=== PATIENT | female | born 1995 | race American Indian/Alaskan Native ===

== ENCOUNTER 2021-01-18 20:48 | Inpatient (IN) | payer OTHER, MEDICAID, SELFPAY ==
[2021-01-18 20:53] VITALS: BP 121/91; PULSE 91; RESP 22; TEMP 36.7; O2SAT 98; BMI 18.3
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
[2021-01-18 21:45] LABS: COVID-19 Test Negative (Negative)
[2021-01-18] MEDS: Diphth,Pertus(ACell),Tet Adult 0.5 ML SYRINGE IM (21:56)
--- NOTE | 2021-01-18 22:06 | PC.NURSE ---
Patient calm and quiet, compliant with admission process, Slovenian speaking, compliant lab draw and Covid swab, provider saw the patient/ordered TDAP 0.5 ml administered as ordered on left deltoid, denied distress, will continue to monitor.
[2021-01-18 22:19] LABS: MANUAL DIFF FLAG NO
[2021-01-18 22:20] LABS: Basophils Percent Auto 0.3 % (0-2); Eosinophils Absolute Auto 0.1 X10*3/uL (0.0-0.4); Eosinophils Percent Auto 1.1 % (0-4); Hematocrit 34.2 % (37-47); Hemoglobin 11.1 g/dl (12.0-16.0); Imm Gran Abs Auto 0.01 X10*3/uL (0.00-0.03); Imm Gran Pct Auto 0.1 % (0.0-0.4); Lymphocytes Absolute Auto 2.2 X10*3/uL (1.2-4.9); Lymphocytes Percent Auto 24.9 % (20-40); Mean Corpuscular HGB Conc 32.5 g/dl (31.0-35.0); Mean Corpuscular Hemoglobin 30.7 pg (27.0-33.0); Mean Corpuscular Volume 94.5 fL (80-98); Mean Platelet Volume 9.5 fL (9.4-12.3); Monocytes Absolute Auto 0.6 X10*3/uL (0.1-1.2); Monocytes Percent Auto 6.3 % (2-11); Neutrophils Absolute Auto 5.9 X10*3/uL (2.0-8.3); Neutrophils Percent Auto 67.3 % (45-73); Platelet Count 349 X10*3/uL (160-400); Red Blood Count 3.62 X10*6/uL (4.20-5.50); Red Cell Distribution Width 12.8 % (11.0-16.0); White Blood Count 8.8 X10*3/uL (4.8-10.8)
[2021-01-18 22:48] LABS: Ethanol < 10 mg/dL
[2021-01-18 22:59] LABS: Anion Gap 13 (12-20); Blood Urea Nitrogen 20 mg/dL (9-16); Calcium 9.7 mg/dL (8.4-10.2); Carbon Dioxide 26 mmol/L (22-29); Chloride 109 mmol/L (96-108); Creatinine Clr Calc Pharmacy 76.5; Estimated Glomerular Filt Rate > 60; Glucose Random 51 mg/dL (60-115); Potassium 3.5 mmol/L (3.3-5.1); Sodium 144 mmol/L (135-145)
[2021-01-18 23:23] LABS: Glucose, Whole Blood 101 mg/dL (60-115)
[2021-01-19 00:07] VITALS: BP 97/58; PULSE 78; RESP 18; TEMP 36.5; O2SAT 100
--- NOTE | 2021-01-19 01:21 | PC.NURSE ---
Patient in bed resting quietly, complaint with BHN assessment process, disposition discharge in the morning, will continue to monitor.
--- NOTE | 2021-01-19 01:41 | PC.NURSE ---
CHERYLE after talking to provider decided to change patient's disposition patient is now on section 12 inpatient bed search, patient and provider aware.
[2021-01-19 04:37] LABS: Glucose Urine UA NEG (NEG); Leukocyte Esterase Urine NEG (NEG); Nitrite Urine NEG (NEG); Specific Gravity - Urine >= 1.030 (1.005-1.025); Urine Blood NEG (NEG); Urine Ketones NEG (NEG); Urine Protein NEG (NEG-TRACE)
[2021-01-19 04:43] LABS: UPreg QC Valid YES; Urine Pregnancy NEGATIVE (NEGATIVE)
[2021-01-19 04:43] LABS: Appearance Urine CLEAR; Color Urine YELLOW
[2021-01-19 05:14] LABS: Amphetamine Screen Urine Not Detected (Not Detect); Barbiturates, Urine Not Detected (Not Detect); Benzodiazepines Screen Urine Not Detected (Not Detect); Cannabinoid Screen Urine Not Detected (Not Detect); Cocaine Screen Urine POSITIVE (Not Detect); Opiate Screen Urine Not Detected (Not Detect); Phencyclidine Screen Urine Not Detected (Not Detect)
--- NOTE | 2021-01-19 07:12 | PC.NURSE ---
patient remains at rest with even unlabored breaths received report from previous nurse, appears in no distress
--- NOTE | 2021-01-19 08:44 | ECG_ITS ---
Test Reason : MEDICALCLEARENCE Blood Pressure : / mmHG Vent. Rate : 066 BPM Atrial Rate : 066 BPM P-R Int : 122 ms QRS Dur : 074 ms QT Int : 406 ms P-R-T Axes : 053 031 012 degrees QTc Int : 425 ms Normal sinus rhythm Normal ECG When compared with ECG of 27-FEB-2017 01:13, No significant change was found Referred By: Gay Henao Electronically Signed By:CINTHIA GUERRERO MD
[2021-01-19 09:46] VITALS: BP 105/61; PULSE 71; RESP 16; TEMP 36.7; O2SAT 99
[2021-01-19 13:30] LABS: CT PCR NOT DETECTED (Not Detect.); NG PCR NOT DETECTED (Not Detect.)
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
[2021-01-20 09:05] LABS: Estimated Average Glucose 85 mg/dL; Hemoglobin A1c % 4.6 %
[2021-01-20 09:10] LABS: Cholesterol 117 mg/dL; HDL Cholesterol 50 mg/dL; LDL Cholesterol Calculated 63 mg/dl; Triglycerides 24 mg/dL
[2021-01-20 09:25] LABS: Thyroid Stimulating Hormone 0.82 uIU/mL (0.32-4.0)
[2021-01-20 09:31] LABS: Folate 7.4 ng/mL (> or = 4.0); Vitamin B12 308 pg/mL (200-900)
[2021-01-20] MEDS: Divalproex Sodium 500 MG TABLET.DR PO ×2 (12:28→21:08)
[2021-01-20] MEDS: OLANZapine 5 MG TABLET PO ×2 (12:29→21:08)
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
[2021-01-20 18:50] VITALS: BP 96/54; PULSE 87; TEMP 36.6
[2021-01-21] MEDS: OLANZapine 5 MG TABLET PO ×2 (08:47→20:14)
[2021-01-21] MEDS: Divalproex Sodium 500 MG TABLET.DR PO ×2 (08:47→20:14)
--- NOTE | 2021-01-21 11:32 | HO.PSYCHPN ---
Subjective Subjective Date of Service: 01/24/21 Reason For Visit: SI Interim History: Radha is covered with blanket. She reports she is doing well, but does not engage much in any kind of meaningful conversation. She denies SI/HI. She denies AH/VH. She reports feeling very tired and needing to rest as she has been on the streets prior to coming to the unit. She has not attended assigned groups. She is minimally interacting with peers. She is taking medications as prescribed- although it appeared that she cheeked one of her medications- depakote. Today she reports she wants to continue taking them. Review of Systems Review of Systems Constitutional : No Fever, No Chills ENT/Mouth : No Ear Pain, No Nasal Congestion, No sore throat Eyes: No Eye Pain, No Swelling, No Redness Cardiovascular : No Chest Pain, No SOB Respiratory : No Cough, No Sputum, No Dyspnea Gastrointestinal : No Nausea, No Vomiting, No Diarrhea, No Hematochezia, No Melena Genitourinary : No Dysuria, No Urinary Frequency, No Hematuria Musculoskeletal : No Myalgias Skin : No Skin Lesions, No rash, pos skin laceration Neuro : No Weakness, No Numbness, No Paresthesias, No Dizziness, No Headache Psych : positive Anxiety, positive Depression, no SI/HI Heme/Lymph: No Lymphadenopathy Endocrine : No Polyuria, No Polydipsia All other systems reviewed and are negative Cardiovascular: Denies chest pain, Denies chest pain at rest, Denies rapid heart rate, Denies lightheadedness and Denies dyspnea Respiratory: Denies dyspnea Gastrointestinal: Denies constipation and Denies diarrhea Mental Status Exam Mental Status Exam Narrative: Appearance: malnourish, dressed in casual clothing, hygiene improved, in NAD Behavior: calm, organized Psychomotor: normal Speech: crumbling at times, pressured rate/rhythm/volume, spontaneous TP: tangential TC: wanting to be discharged Mood: fine Affect euthymic, smiles slight at times SI:denies HI:denies AH/VH:denies Delusions:none Insight/judgment:poor x 2. Memory/cog: alert, oriented x 3. Diagnostics Vital Signs (24Hr): Vital Signs - 24 hr 01/23/21 18:00 Temperature 98.3 F Pulse Rate 88 Blood Pressure 111/56 L Body Mass Index 21.3 Labs Results: 01/18/21 22:15 05/18/21 22:15 Medications Medications Current Medications Generic Name Dose Route Start Last Admin Trade Name Freq PRN Reason Stop Dose Admin Acetaminophen 650 mg 01/19/21 12:23 Acetaminophen 325 Mg Tablet PO Q6H PRN Headache/Pain Mild Scale (1-3) Al Hydroxide/Mg Hydroxide 30 ml 01/19/21 12:23 Magnesium Hydrox/Alum Hydrox 30 Ml Oral.Susp PO Q6H PRN Heartburn/Nausea Divalproex Sodium 500 mg 01/20/21 12:00 01/24/21 09:51 Divalproex Sodium 500 Mg Tablet.Dr PO 500 mg BID ROBB Administration Hydroxyzine HCl 50 mg 01/20/21 11:59 Hydroxyzine Hcl 25 Mg Tablet PO Q6H PRN Anxiety Magnesium Hydroxide 30 ml 01/19/21 12:23 Milk Of Magnesia 30 Ml Oral.Susp PO DAILY PRN Constipation Olanzapine 5 mg 01/20/21 12:00 01/24/21 09:51 Olanzapine 5 Mg Tablet PO 5 mg BID ROBB Administration Trazodone HCl 50 mg 01/19/21 12:23 Trazodone Hcl 50 Mg Tablet PO BEDTIME PRN Insomnia Allergies Allergies Allergy/AdvReac Type Severity Reaction Status Date / Time No Known Allergies Allergy Unverified 05/20/20 18:58 [No Known Allergies*] Assessment & Plan Assessment & Plan (1) Bipolar 1 disorder, manic, moderate: Status: Acute Code(s): F31.12 - Bipolar disorder, current episode manic without psychotic features, moderate (2) Cocaine use disorder, severe, dependence: Status: Acute Code(s): F14.20 - Cocaine dependence, uncomplicated Assessment and Plan: Education done with patient regarding need for consistent control method while on Depakote to prevent risk of tubal defects if she were to get ; emphasized importance of her not getting while on Depakote- pt acknowleged understanding Continue Depakote 500mg po BID Continue olanzapine 5mg po BID Continue to encourage referral to substance use treatment programs. pt currently declines. Greater than 50% of the session was spent on counseling and/or coordination of care Reason for contiued inpatient stay Substantial Risk for: harm to self
[2021-01-21 11:55] VITALS: BMI 21.3
[2021-01-21 11:58] VITALS: BMI 21.3
[2021-01-21 16:50] VITALS: BP 100/58; PULSE 85; TEMP 37.1
[2021-01-22 06:00] VITALS: BP 95/52; PULSE 93; RESP 18; TEMP 36.8; O2SAT 99
--- NOTE | 2021-01-22 07:53 | HO.PSYCHPN ---
Subjective Subjective Date of Service: 01/22/21 Reason For Visit: SI Subjective Notes: [facility] Proxy: No Guardianship: No Medical Problems Affecting Mental Status: No Interim History: pt mood elevated; laughing slightly at times; She is cooperative. Denies SI or HI. She denies auditory or visual hallucinations Medication Compliance: Yes Side effects from medications: No Attending Groups: No Review of Systems Review of Systems Constitutional : No Fever, No Chills ENT/Mouth : No Ear Pain, No Nasal Congestion, No sore throat Eyes: No Eye Pain, No Swelling, No Redness Cardiovascular : No Chest Pain, No SOB Respiratory : No Cough, No Sputum, No Dyspnea Gastrointestinal : No Nausea, No Vomiting, No Diarrhea, No Hematochezia, No Melena Genitourinary : No Dysuria, No Urinary Frequency, No Hematuria Musculoskeletal : No Myalgias Skin : No Skin Lesions, No rash, pos skin laceration Neuro : No Weakness, No Numbness, No Paresthesias, No Dizziness, No Headache Psych : positive Anxiety, positive Depression, no SI/HI Heme/Lymph: No Lymphadenopathy Endocrine : No Polyuria, No Polydipsia All other systems reviewed and are negative Cardiovascular: Denies chest pain, Denies chest pain at rest, Denies rapid heart rate, Denies lightheadedness and Denies dyspnea Respiratory: Denies dyspnea Gastrointestinal: Denies constipation and Denies diarrhea Mental Status Exam Mental Status Exam Narrative: Appearance: malnourish, wearing hospital gown, poor hygiene, in NAD Behavior: irritable Psychomotor: some agitation noted Speech: crumbling at times, pressured rate/rhythm/volume, spontaneous TP: tangential TC: wanting to be discharged Mood: fine Affect:dysphoric SI:denies HI:denies AH/VH:denies Delusions:none Insight/judgment:poor x 2. Memory/cog: alert, oriented x 3. Diagnostics Vital Signs (24Hr): Vital Signs - 24 hr 01/21/21 16:50 01/22/21 06:00 Temperature 98.8 F 98.3 F Pulse Rate 85 93 Respiratory Rate 18 Blood Pressure 100/58 L 95/52 L Pulse Oximetry 99 Body Mass Index 21.3 Labs Results: 01/18/21 22:15 01/18/21 22:15 Labs: Laboratory Results - last 48 hr 01/20/21 01/20/21 01/20/21 07:59 07:59 07:59 Estimat Average Glucose 85 Hemoglobin A1c % 4.6 Triglycerides 24 Cholesterol 117 LDL Cholesterol, Calc 63 HDL Cholesterol 50 Vitamin B12 308 Folate 7.4 TSH 0.82 Medications Medications Current Medications Generic Name Dose Route Start Last Admin Trade Name Freq PRN Reason Stop Dose Admin Acetaminophen 650 mg 01/19/21 12:23 Acetaminophen 325 Mg Tablet PO Q6H PRN Headache/Pain Mild Scale (1-3) Al Hydroxide/Mg Hydroxide 30 ml 01/19/21 12:23 Magnesium Hydrox/Alum Hydrox 30 Ml Oral.Susp PO Q6H PRN Heartburn/Nausea Divalproex Sodium 500 mg 01/20/21 12:00 01/21/21 20:14 Divalproex Sodium 500 Mg Tablet.Dr PO 500 mg BID ROBB Administration Hydroxyzine HCl 50 mg 01/20/21 11:59 Hydroxyzine Hcl 25 Mg Tablet PO Q6H PRN Anxiety Magnesium Hydroxide 30 ml 01/19/21 12:23 Milk Of Magnesia 30 Ml Oral.Susp PO DAILY PRN Constipation Olanzapine 5 mg 01/20/21 12:00 01/21/21 20:14 Olanzapine 5 Mg Tablet PO 5 mg BID ROBB Administration Trazodone HCl 50 mg 01/19/21 12:23 Trazodone Hcl 50 Mg Tablet PO BEDTIME PRN Insomnia Allergies Allergies Allergy/AdvReac Type Severity Reaction Status Date / Time No Known Allergies Allergy Unverified 05/20/20 18:58 [No Known Allergies*] Assessment & Plan Assessment & Plan (1) Bipolar 1 disorder, manic, moderate: Status: Acute Code(s): F31.12 - Bipolar disorder, current episode manic without psychotic features, moderate (2) Cocaine use disorder, severe, dependence: Status: Acute Code(s): F14.20 - Cocaine dependence, uncomplicated Assessment and Plan: Education regarding need for consistent control method while on Depakote to prevent risk of tubal defects Continue Depakote 500mg po BID as long as pt able to prevent Continue olanzapine 5mg po BID Continue to encourage referral to substance use treatment programs. pt currently declines. Greater than 50% of the session was spent on counseling and/or coordination of care Patient educated on: medication risk/benefits and therapeutic strategies Informed Consent: further education needed Reason for contiued inpatient stay Substantial Risk for: harm to self, harm to others, inability to function and rapid decompensation
[2021-01-22] MEDS: OLANZapine 5 MG TABLET PO ×2 (08:53→21:18)
[2021-01-22] MEDS: Divalproex Sodium 500 MG TABLET.DR PO ×2 (08:53→21:17)
[2021-01-22 18:00] VITALS: BP 106/66; TEMP 37.1
[2021-01-23 06:00] VITALS: BP 114/61; PULSE 83; RESP 16; TEMP 35.8; O2SAT 99
[2021-01-23] MEDS: OLANZapine 5 MG TABLET PO ×2 (08:36→21:11)
[2021-01-23] MEDS: Divalproex Sodium 500 MG TABLET.DR PO ×2 (08:36→21:11)
--- NOTE | 2021-01-23 17:32 | HO.PSYCHPN ---
Subjective Subjective Date of Service: 01/23/21 Reason For Visit: SI Interim History: pt mood improved; smiling at times; She is cooperative. Denies SI or HI. She denies auditory or visual hallucinations Review of Systems Review of Systems Constitutional : No Fever, No Chills ENT/Mouth : No Ear Pain, No Nasal Congestion, No sore throat Eyes: No Eye Pain, No Swelling, No Redness Cardiovascular : No Chest Pain, No SOB Respiratory : No Cough, No Sputum, No Dyspnea Gastrointestinal : No Nausea, No Vomiting, No Diarrhea, No Hematochezia, No Melena Genitourinary : No Dysuria, No Urinary Frequency, No Hematuria Musculoskeletal : No Myalgias Skin : No Skin Lesions, No rash, pos skin laceration Neuro : No Weakness, No Numbness, No Paresthesias, No Dizziness, No Headache Psych : positive Anxiety, positive Depression, no SI/HI Heme/Lymph: No Lymphadenopathy Endocrine : No Polyuria, No Polydipsia All other systems reviewed and are negative Cardiovascular: Denies chest pain, Denies chest pain at rest, Denies rapid heart rate, Denies lightheadedness and Denies dyspnea Respiratory: Denies dyspnea Gastrointestinal: Denies constipation and Denies diarrhea Mental Status Exam Mental Status Exam Narrative: Appearance: malnourish, dressed in casual clothing, hygiene improved, in NAD Behavior: calm, organized Psychomotor: normal Speech: crumbling at times, pressured rate/rhythm/volume, spontaneous TP: tangential TC: wanting to be discharged Mood: fine Affect euthymic, smiles slight at times SI:denies HI:denies AH/VH:denies Delusions:none Insight/judgment:poor x 2. Memory/cog: alert, oriented x 3. Diagnostics Vital Signs (24Hr): Vital Signs - 24 hr 01/22/21 18:00 01/23/21 06:00 Temperature 98.7 F 96.5 F L Pulse Rate 83 Respiratory Rate 16 Blood Pressure 106/66 114/61 Pulse Oximetry 99 Body Mass Index 21.3 Labs Results: 01/18/21 22:15 01/18/21 22:15 Medications Medications Current Medications Generic Name Dose Route Start Last Admin Trade Name Freq PRN Reason Stop Dose Admin Acetaminophen 650 mg 01/19/21 12:23 Acetaminophen 325 Mg Tablet PO Q6H PRN Headache/Pain Mild Scale (1-3) Al Hydroxide/Mg Hydroxide 30 ml 01/19/21 12:23 Magnesium Hydrox/Alum Hydrox 30 Ml Oral.Susp PO Q6H PRN Heartburn/Nausea Divalproex Sodium 500 mg 01/20/21 12:00 01/23/21 08:36 Divalproex Sodium 500 Mg Tablet.Dr PO 500 mg BID ROBB Administration Hydroxyzine HCl 50 mg 01/20/21 11:59 Hydroxyzine Hcl 25 Mg Tablet PO Q6H PRN Anxiety Magnesium Hydroxide 30 ml 01/19/21 12:23 Milk Of Magnesia 30 Ml Oral.Susp PO DAILY PRN Constipation Olanzapine 5 mg 01/20/21 12:00 01/23/21 08:36 Olanzapine 5 Mg Tablet PO 5 mg BID ROBB Administration Trazodone HCl 50 mg 01/19/21 12:23 Trazodone Hcl 50 Mg Tablet PO BEDTIME PRN Insomnia Allergies Allergies Allergy/AdvReac Type Severity Reaction Status Date / Time No Known Allergies Allergy Unverified 05/20/20 18:58 [No Known Allergies*] Assessment & Plan Assessment & Plan (1) Bipolar 1 disorder, manic, moderate: Status: Acute Code(s): F31.12 - Bipolar disorder, current episode manic without psychotic features, moderate (2) Cocaine use disorder, severe, dependence: Status: Acute Code(s): F14.20 - Cocaine dependence, uncomplicated Assessment and Plan: Education done with patient regarding need for consistent control method while on Depakote to prevent risk of tubal defects if she were to get ; emphasized importance of her not getting while on Depakote- pt acknowleged understanding Continue Depakote 500mg po BID Continue olanzapine 5mg po BID Continue to encourage referral to substance use treatment programs. pt currently declines. Greater than 50% of the session was spent on counseling and/or coordination of care Reason for contiued inpatient stay Substantial Risk for: med/psych decompensation
[2021-01-23 18:00] VITALS: BP 111/56; PULSE 88; TEMP 36.8
--- NOTE | 2021-01-24 09:29 | HO.PSYCHPN ---
Subjective Subjective Date of Service: 01/25/21 Reason For Visit: SI Interim History: Radha is engaging much in meaningful conversations about her treatment. She reports that cutting herself was impulsive, probably in setting of cocaine use. She reports medications helping her with mood more stable. She does not appear as expansive and labile. She reports her sleep and appetite have improved. She denies SI/HI. She is hesitant about substance use treatment. She admits it's a problem but also reports that she may be able to just stop on my own. She is taking depakote- educated on effects on fetus is she becomes . Pt reports she does not use contraceptive methods. She agrees to follow up with [facility]. She was given option of not taking depakote but she reports she finds it very helpful for her mood. She reports she is not planning on having a baby. Understand that although she has not gotten for last 4 years, that may change and need for contraceptive. She has been more visible in the unit, social with select peers. No behavioral concerns. She denies SI/HI. Review of Systems Review of Systems Constitutional : No Fever, No Chills ENT/Mouth : No Ear Pain, No Nasal Congestion, No sore throat Eyes: No Eye Pain, No Swelling, No Redness Cardiovascular : No Chest Pain, No SOB Respiratory : No Cough, No Sputum, No Dyspnea Gastrointestinal : No Nausea, No Vomiting, No Diarrhea, No Hematochezia, No Melena Genitourinary : No Dysuria, No Urinary Frequency, No Hematuria Musculoskeletal : No Myalgias Skin : No Skin Lesions, No rash, pos skin laceration Neuro : No Weakness, No Numbness, No Paresthesias, No Dizziness, No Headache Psych : positive Anxiety, positive Depression, no SI/HI Heme/Lymph: No Lymphadenopathy Endocrine : No Polyuria, No Polydipsia All other systems reviewed and are negative Cardiovascular: Denies chest pain, Denies chest pain at rest, Denies rapid heart rate, Denies lightheadedness and Denies dyspnea Respiratory: Denies dyspnea Gastrointestinal: Denies constipation and Denies diarrhea Mental Status Exam Mental Status Exam Narrative: Appearance: malnourish, dressed in casual clothing, hygiene improved, in NAD Behavior: calm, organized Psychomotor: normal Speech: crumbling at times, pressured rate/rhythm/volume, spontaneous TP: tangential TC: wanting to be discharged Mood: fine Affect euthymic, smiles slight at times SI:denies HI:denies AH/VH:denies Delusions:none Insight/judgment:poor x 2. Memory/cog: alert, oriented x 3. Diagnostics Vital Signs (24Hr): Vital Signs - 24 hr 01/24/21 18:00 01/25/21 06:00 Temperature 97.2 F 97.7 F Pulse Rate 88 96 Respiratory Rate 18 Blood Pressure 120/70 129/85 Pulse Oximetry 100 99 Body Mass Index 21.3 Labs Results: 01/18/21 22:15 01/18/21 22:15 Labs: Laboratory Results - last 48 hr 01/25/21 07:47 Valproic Acid 74.9 Medications Medications Current Medications Generic Name Dose Route Start Last Admin Trade Name Freq PRN Reason Stop Dose Admin Acetaminophen 650 mg 01/19/21 12:23 Acetaminophen 325 Mg Tablet PO Q6H PRN Headache/Pain Mild Scale (1-3) Al Hydroxide/Mg Hydroxide 30 ml 01/19/21 12:23 Magnesium Hydrox/Alum Hydrox 30 Ml Oral.Susp PO Q6H PRN Heartburn/Nausea Divalproex Sodium 500 mg 01/20/21 12:00 01/25/21 08:21 Divalproex Sodium 500 Mg Tablet.Dr PO 500 mg BID ROBB Administration Hydroxyzine HCl 50 mg 01/20/21 11:59 Hydroxyzine Hcl 25 Mg Tablet PO Q6H PRN Anxiety Magnesium Hydroxide 30 ml 01/19/21 12:23 Milk Of Magnesia 30 Ml Oral.Susp PO DAILY PRN Constipation Olanzapine 5 mg 01/20/21 12:00 01/25/21 08:22 Olanzapine 5 Mg Tablet PO 5 mg BID ROBB Administration Trazodone HCl 50 mg 01/19/21 12:23 Trazodone Hcl 50 Mg Tablet PO BEDTIME PRN Insomnia Allergies Allergies Allergy/AdvReac Type Severity Reaction Status Date / Time No Known Allergies Allergy Unverified 05/20/20 18:58 [No Known Allergies*] Assessment & Plan Assessment & Plan (1) Bipolar 1 disorder, manic, moderate: Status: Acute Code(s): F31.12 - Bipolar disorder, current episode manic without psychotic features, moderate (2) Cocaine use disorder, severe, dependence: Status: Acute Code(s): F14.20 - Cocaine dependence, uncomplicated Assessment and Plan: Education done with patient regarding need for consistent control method while on Depakote to prevent risk of tubal defects if she were to get ; emphasized importance of her not getting while on Depakote- pt acknowleged understanding Continue Depakote 500mg po BID Continue olanzapine 5mg po BID Continue to encourage referral to substance use treatment programs. pt currently declines. Greater than 50% of the session was spent on counseling and/or coordination of care Reason for contiued inpatient stay Substantial Risk for: stable for discharge
[2021-01-24] MEDS: Divalproex Sodium 500 MG TABLET.DR PO ×2 (09:51→20:35)
[2021-01-24] MEDS: OLANZapine 5 MG TABLET PO ×2 (09:51→20:35)
[2021-01-24 18:00] VITALS: BP 120/70; PULSE 88; TEMP 36.2; O2SAT 100
[2021-01-25 06:00] VITALS: BP 129/85; PULSE 96; RESP 18; TEMP 36.5; O2SAT 99
[2021-01-25] MEDS: Divalproex Sodium 500 MG TABLET.DR PO (08:21)
[2021-01-25] MEDS: OLANZapine 5 MG TABLET PO (08:22)
[2021-01-25 09:04] LABS: Valproate 74.9 mcg/mL (50.0-100.0)
--- NOTE | 2021-01-25 09:40 | P.DS_ITS ---
DS: Providers Provider Date of Service: 02/14/21 Date of admission: 01/19/21 12:23 Primary care physician: [facility] DS: Diagnosis Discharge Diagnosis (1) Bipolar 1 disorder, manic, moderate: Status: Acute (2) Cocaine use disorder, severe, dependence: Status: Acute DS: Medications Discharge Medications Home Medications: Previous Rx's Medication Instructions Recorded divalproex 500 mg PO BID 30 Days #60 tab 01/25/21 olanzapine 5 mg PO BID 30 Days #60 tab 01/25/21 trazodone 50 mg PO BEDTIME PRN 30 Days tab 01/25/21 Discharge Plan Discharge Patient Disposition: Home, Self-Care Discharge Diagnosis: Cocaine use disorder Cocaine induce mood disorder versus Bipolar Disorder Referrals: Darren Jeffries (therapist) [Other] - 01/27/21 9:45 am (Telehealth appointment) Kierra Arroyo (psychiatrist) [Other] - 02/23/21 3:30 pm (Telehealth appointment) Kierra Arroyo (psychiatrist) [Other] - 03/23/21 12:40 pm (Telehealth appointment) Lolly Teixeira NP [Nurse Practitioner] - 02/14/21 2:45 pm (Follow up appointment over phone.) Discharge Medications: New trazodone 50 mg Tablet 50 mg PO BEDTIME PRN (Reason: Insomnia) 30 Days RF: 0 olanzapine 5 mg Tablet 5 mg PO BID 30 Days Qty: 60 RF: 0 divalproex 500 mg Tablet,Delayed Release (Dr/Ec) 500 mg PO BID 30 Days Qty: 60 RF: 0 Discharge Orders: Discharge Order (Routine); Ordered 01/25/21 Ordered By: Emelyn Garay Diet: regular diet Activity on Discharge: As tolerated Stand Alone Forms: Patient Portal Discharge page Care Plan Goals: 1. maintain stable mood- avoid or decrease substance use 2. continue working on coping skills for self injurious behaviors. 3. Safety- contact 911 or OP providers Health Concerns: 1. follow up with PCP and PENCIL MAKER for contraception options given that pt is on depakote. Plan of Treatment: 1. consider substance use treatment programs 1. follow up with referrals 2. take medications as prescribed Assessment: Pt with less labile and dysphoric mood. No SI/HI. No self injurious behaviors. Discharge Date/Time: 01/25/21 10:00 Mental Status Exam Mental Status Exam Narrative: Appearance: malnourish, dressed in casual clothing, hygiene improved, in NAD Behavior: calm, organized Psychomotor: normal Speech: crumbling at times, pressured rate/rhythm/volume, spontaneous TP: tangential TC: wanting to be discharged Mood: fine Affect euthymic, smiles slight at times SI:denies HI:denies AH/VH:denies Delusions:none Insight/judgment:poor x 2. Memory/cog: alert, oriented x 3. Data Data Completed and Pending Completed studies during hospitalization [Text1]: 01/18/21 01/18/21 01/18/21 20:59 22:15 22:15 WBC 8.8 RBC 3.62 L Hgb 11.1 L Hct 34.2 L MCV 94.5 MCH 30.7 MCHC 32.5 RDW 12.8 Plt Count 349 MPV 9.5 Immature Gran % (Auto) 0.1 Neut % (Auto) 67.3 Lymph % (Auto) 24.9 [place] % (Auto) 6.3 Eos % (Auto) 1.1 Baso % (Auto) 0.3 Lymph # (Auto) 2.2 [place] # (Auto) 0.6 Eos # (Auto) 0.1 Baso # (Auto) 0.0 Abs Immat Gran (auto) 0.01 Absolute Neuts (auto) 5.9 Absolute Nucleated RBC 0.000 Nucleated RBC % (auto) 0.0 Sodium 144 Potassium 3.5 Chloride 109 H Carbon Dioxide 26 Anion Gap 13 BUN 20 H Creatinine 0.87 Estim Creat Clear Calc 76.5 Estimated GFR > 60 POC Glucose Random Glucose 51 L* Estimat Average Glucose Hemoglobin A1c % Calcium 9.7 Triglycerides Cholesterol LDL Cholesterol, Calc HDL Cholesterol Vitamin B12 Folate TSH Urine Color Urine Appearance Urine pH Ur Specific [employer] Urine Protein Urine Glucose (UA) Urine Ketones Urine Blood Urine Nitrite Ur Leukocyte Esterase Urine Test Urine Opiates Screen Ur Barbiturates Screen Valproic Acid Ur Phencyclidine Scrn Ur Amphetamines Screen U Benzodiazepines Scrn Urine Cocaine Screen U Marijuana (THC) Screen Ethyl Alcohol Chlam trachomat DNA PCR COVID-19 (RONNIE) Negative COVID-19 Clin Com See Note N.gonorrhoeae DNA (PCR) 01/18/21 01/18/21 01/19/21 22:15 23:14 04:26 WBC RBC Hgb Hct MCV MCH MCHC RDW Plt Count MPV Immature Gran % (Auto) Neut % (Auto) Lymph % (Auto) [place] % (Auto) Eos % (Auto) Baso % (Auto) Lymph # (Auto) [place] # (Auto) Eos # (Auto) Baso # (Auto) Abs Immat Gran (auto) Absolute Neuts (auto) Absolute Nucleated RBC Nucleated RBC % (auto) Sodium Potassium Chloride Carbon Dioxide Anion Gap BUN Creatinine Estim Creat Clear Calc Estimated GFR POC Glucose 101 Random Glucose Estimat Average Glucose Hemoglobin A1c % Calcium Triglycerides Cholesterol LDL Cholesterol, Calc HDL Cholesterol Vitamin B12 Folate TSH Urine Color Urine Appearance Urine pH Ur Specific [employer] Urine Protein Urine Glucose (UA) Urine Ketones Urine Blood Urine Nitrite Ur Leukocyte Esterase Urine Test Urine Opiates Screen Not Detected Ur Barbiturates Screen Not Detected Valproic Acid Ur Phencyclidine Scrn Not Detected Ur Amphetamines Screen Not Detected U Benzodiazepines Scrn Not Detected Urine Cocaine Screen POSITIVE H U Marijuana (THC) Screen Not Detected Ethyl Alcohol < 10 Chlam trachomat DNA PCR COVID-19 (RONNIE) COVID-19 Clin Com N.gonorrhoeae DNA (PCR) 01/19/21 01/19/21 01/19/21 04:26 04:27 04:27 WBC RBC Hgb Hct MCV MCH MCHC RDW Plt Count MPV Immature Gran % (Auto) Neut % (Auto) Lymph % (Auto) [place] % (Auto) Eos % (Auto) Baso % (Auto) Lymph # (Auto) [place] # (Auto) Eos # (Auto) Baso # (Auto) Abs Immat Gran (auto) Absolute Neuts (auto) Absolute Nucleated RBC Nucleated RBC % (auto) Sodium Potassium Chloride Carbon Dioxide Anion Gap BUN Creatinine Estim Creat Clear Calc Estimated GFR POC Glucose Random Glucose Estimat Average Glucose Hemoglobin A1c % Calcium Triglycerides Cholesterol LDL Cholesterol, Calc HDL Cholesterol Vitamin B12 Folate TSH Urine Color YELLOW Urine Appearance CLEAR Urine pH 6.0 Ur Specific [employer] >= 1.030 H Urine Protein NEG Urine Glucose (UA) NEG Urine Ketones NEG Urine Blood NEG Urine Nitrite NEG Ur Leukocyte Esterase NEG Urine Test NEGATIVE Urine Opiates Screen Ur Barbiturates Screen Valproic Acid Ur Phencyclidine Scrn Ur Amphetamines Screen U Benzodiazepines Scrn Urine Cocaine Screen U Marijuana (THC) Screen Ethyl Alcohol Chlam trachomat DNA PCR NOT DETECTED COVID-19 (RONNIE) COVID-19 Clin Com N.gonorrhoeae DNA (PCR) NOT DETECTED 01/20/21 01/20/21 01/20/21 07:59 07:59 07:59 WBC RBC Hgb Hct MCV MCH MCHC RDW Plt Count MPV Immature Gran % (Auto) Neut % (Auto) Lymph % (Auto) [place] % (Auto) Eos % (Auto) Baso % (Auto) Lymph # (Auto) [place] # (Auto) Eos # (Auto) Baso # (Auto) Abs Immat Gran (auto) Absolute Neuts (auto) Absolute Nucleated RBC Nucleated RBC % (auto) Sodium Potassium Chloride Carbon Dioxide Anion Gap BUN Creatinine Estim Creat Clear Calc Estimated GFR POC Glucose Random Glucose Estimat Average Glucose 85 Hemoglobin A1c % 4.6 Calcium Triglycerides 24 Cholesterol 117 LDL Cholesterol, Calc 63 HDL Cholesterol 50 Vitamin B12 308 Folate 7.4 TSH 0.82 Urine Color Urine Appearance Urine pH Ur Specific [employer] Urine Protein Urine Glucose (UA) Urine Ketones Urine Blood Urine Nitrite Ur Leukocyte Esterase Urine Test Urine Opiates Screen Ur Barbiturates Screen Valproic Acid Ur Phencyclidine Scrn Ur Amphetamines Screen U Benzodiazepines Scrn Urine Cocaine Screen U Marijuana (THC) Screen Ethyl Alcohol Chlam trachomat DNA PCR COVID-19 (RONNIE) COVID-19 Clin Com N.gonorrhoeae DNA (PCR) 01/25/21 07:47 WBC RBC Hgb Hct MCV MCH MCHC RDW Plt Count MPV Immature Gran % (Auto) Neut % (Auto) Lymph % (Auto) [place] % (Auto) Eos % (Auto) Baso % (Auto) Lymph # (Auto) [place] # (Auto) Eos # (Auto) Baso # (Auto) Abs Immat Gran (auto) Absolute Neuts (auto) Absolute Nucleated RBC Nucleated RBC % (auto) Sodium Potassium Chloride Carbon Dioxide Anion Gap BUN Creatinine Estim Creat Clear Calc Estimated GFR POC Glucose Random Glucose Estimat Average Glucose Hemoglobin A1c % Calcium Triglycerides Cholesterol LDL Cholesterol, Calc HDL Cholesterol Vitamin B12 Folate TSH Urine Color Urine Appearance Urine pH Ur Specific [employer] Urine Protein Urine Glucose (UA) Urine Ketones Urine Blood Urine Nitrite Ur Leukocyte Esterase Urine Test Urine Opiates Screen Ur Barbiturates Screen Valproic Acid 74.9 Ur Phencyclidine Scrn Ur Amphetamines Screen U Benzodiazepines Scrn Urine Cocaine Screen U Marijuana (THC) Screen Ethyl Alcohol Chlam trachomat DNA PCR COVID-19 (RONNIE) COVID-19 Clin Com N.gonorrhoeae DNA (PCR) DS: Summary Hospital Course Hospital Course: Ms. Tinoco is a 25 year-old woman with hx of mood disorder and cocaine use disorder who was [place] [facility] [place] after she superficially cut her neck and cut her wrist which did require sutures as a suicide attempt. In the ED, Ms. Tinoco was positive for cocaine. On the unit, Ms. Tinoco presents as irritable with dysphoric affect. She initially was demanding to be discharged without providing much information in terms of events leading to this admission. Pt reports she was having an argument with my . She reports it was impulsive act as she denies thinking about suicide recently or experiencing increase symptoms of depression. She reports using cocaine daily, unknown amounts. As she is showing this keno writer lacerations, pt seen laughing inappropriately. She denies SI or HI. She also denies VH/AH. She reports feeling anxious. She reports using cocaine for several years. She reports this is her first inpatient psychiatric admission but reports that in [place] she used to take many psych meds. She can't remember the names. Pt apparently has been homeless for since 2017. Past Psychiatric History: Inpatient: none prior to this one OP: none Suicide attempts: pt denies but reports history of SIB not with intent to end her life. Past trials: unknown HOSPITAL COURSE Ms. Tinoco was admitted initially on Section 12, later agreed to sign CV. She was placed on 15 minutes checks for safety. On the unit, pt initially presented as labile, laughing inappropriately and minimally cooperative with treatment team. She denied suicidal or homicidal ideation. She reported hearing voices at times, mostly when using cocaine. She reported being homeless for at least 4 years. After discussing risks, benefits and alternative treatment options, pt agreed to start olanzapine and depakote for mood. Her affect gradually appeared much less labile and she wasn't seen smiling inappropriately. She was engaging more in meaningful conversations with treatment team. She reported having mental health issues for a long time, treated mostly in [place]. She also reported long history of cocaine use, which she admitted was problematic. She reported her partner also uses cocaine and this made it difficult to stop. She has two children in [place], her mother has custody of them and pt does not talk with them regularly. Pt appetite and sleep improved. She agreed to be referred to OP psychiatric treatment. She decline referrals for residential substance use treatment programs. There were no incidences of disruptive behaviors nor use of restraints. Pt educated on effects of depakote if she does become as it is teratogenic. Pt understands and reports she does not plan to have children at this time. Advised to continue protection with her PENCIL MAKER/OB. Time spent discussing smoking cessation with patient: 3 to 10 minutes Status at Discharge Cognitive/behavioral status at discharge: Pt non labile, less irritable. No SI/HI. No VH/AH. Functional status at discharge: independent ambulation Overall status at discharge: patient is progressing back to baseline Time Spent with Patient Time attestation: Total time spent providing and/or coordinating discharge services: Time spent: Greater than 30 minutes
== END 2021-01-25 10:00 | disposition home or self-care (01) | DRG 753 ==
LOC: HO.ED 21:16 → HO.PM5 01-19 12:33
PROVIDERS: Admitting Provider Psychiatry & Neurology Psychiatry; Emergency Provider Emergency Medicine; Visit Provider Social Worker
DX: F31.12 Bipolar disorder, current episode manic without psychotic features, moderate (principal); R45.851 Suicidal ideations; F14.20 Cocaine dependence, uncomplicated; E16.2 Hypoglycemia, unspecified; S51.812A Laceration without foreign body of left forearm, initial encounter; X78.9XXA Intentional self-harm by unspecified sharp object, initial encounter; Y93.9 Activity, unspecified; Y92.009 Unspecified place in unspecified non-institutional (private) residence as the place of occurrence of the external cause; Y99.9 Unspecified external cause status; Z20.822 Contact with and (suspected) exposure to COVID-19; Z79.899 Other long term (current) drug therapy
CPT/HCPCS: 36415; 80048; 80061; 80164; 80307; 80320; 81003; 81025; 82607; 82746; 82947; 83036; 84443; 85025; 87491; 87591; 87635; 90715; 93005; 99285

== ENCOUNTER 2021-06-04 01:06 | Emergency (ER) | payer MEDICAID, SELFPAY ==
--- NOTE | ~2021-06-04 | US_ITS ---
EXAMINATION: ULTRASOUND OB LIMITED CLINICAL INFORMATION: Pain. Nausea and vomiting. No care. Crack use. COMPARISON: None TECHNIQUE: Transabdominal sonographic evaluation of the fetus. FINDINGS: There is an intrauterine . Breech position of the fetus. Anterior placenta, grade 1/2. Amniotic fluid within normal limits with DONNY of 11.43. Normal heart rate at 144 bpm. Normal motion. Limited evaluation of the anatomy, with bladder and stomach visualized. Measurements as follows: Biparietal diameter 4.79 cm Head circumference 18.31 cm Abdominal circumference 15.57 cm Femur length 3.17 cm Gestational age by ultrasound of 20 weeks 3 days. Estimated weight of 342 g. Estimated date of delivery 10/19/2021. US/US OB limited IMPRESSION: Live intrauterine with gestational age by ultrasound of 20 weeks 3 days.
[2021-06-04 01:19] VITALS: BP 112/53; PULSE 79; RESP 16; TEMP 36.7; O2SAT 98; BMI 22.7
[2021-06-04 01:38] VITALS: BP 119/77; PULSE 94; RESP 16; O2SAT 100
[2021-06-04 01:38] LABS: MANUAL DIFF FLAG NO
[2021-06-04 01:47] LABS: Basophils Absolute Auto 0.1 X10*3/uL (0.0-0.2); Basophils Percent Auto 0.6 % (0-2); Eosinophils Absolute Auto 0.2 X10*3/uL (0.0-0.4); Eosinophils Percent Auto 2.1 % (0-4); Hematocrit 27.9 % (37-47); Hemoglobin 9.8 g/dl (12.0-16.0); Imm Gran Abs Auto 0.06 X10*3/uL (0.00-0.03); Imm Gran Pct Auto 0.7 % (0.0-0.4); Lymphocytes Absolute Auto 2.3 X10*3/uL (1.2-4.9); Lymphocytes Percent Auto 25.5 % (20-40); Mean Corpuscular HGB Conc 35.1 g/dl (31.0-35.0); Mean Corpuscular Hemoglobin 32.3 pg (27.0-33.0); Mean Corpuscular Volume 92.1 fL (80-98); Mean Platelet Volume 9.4 fL (9.4-12.3); Monocytes Absolute Auto 0.6 X10*3/uL (0.1-1.2); Monocytes Percent Auto 6.3 % (2-11); Neutrophils Absolute Auto 5.7 X10*3/uL (2.0-8.3); Neutrophils Percent Auto 64.8 % (45-73); Platelet Count 292 X10*3/uL (160-400); Red Blood Count 3.03 X10*6/uL (4.20-5.50); Red Cell Distribution Width 12.9 % (11.0-16.0); White Blood Count 8.8 X10*3/uL (4.8-10.8)
[2021-06-04 01:48] LABS: Appearance Urine HAZY; Color Urine YELLOW; Glucose Urine UA NEG (NEG); Leukocyte Esterase Urine NEG (NEG); Nitrite Urine NEG (NEG); Specific Gravity - Urine >= 1.030 (1.005-1.025); Urine Blood NEG (NEG); Urine Ketones NEG (NEG); Urine Protein TRACE MG/DL (NEG-TRACE)
[2021-06-04 01:49] LABS: UACC Culture Trigger NO; UPreg QC Valid YES; Urine Pregnancy POSITIVE (NEGATIVE)
[2021-06-04 02:02] LABS: Alanine Aminotransferase 10 U/L (0-31); Albumin Level 3.4 g/dL (3.5-5.0); Alkaline Phosphatase 39 U/L (39-117); Anion Gap 11 (12-20); Aspartate Amino Transferase 15 U/L (5-31); Bilirubin Total 0.2 mg/dL (0.0-1.0); Blood Urea Nitrogen 11 mg/dL (9-16); Calcium 8.8 mg/dL (8.4-10.2); Carbon Dioxide 22 mmol/L (22-29); Chloride 107 mmol/L (96-108); Creatinine Clr Calc Pharmacy 114.2; Estimated Glomerular Filt Rate > 60; Glucose Random 83 mg/dL (60-115); Potassium 3.4 mmol/L (3.3-5.1); Sodium 137 mmol/L (135-145); Total Protein 6.4 g/dL (6.5-8.0)
[2021-06-04 02:47] LABS: Amphetamine Screen Urine Not Detected (Not Detect); Barbiturates, Urine Not Detected (Not Detect); Benzodiazepines Screen Urine Not Detected (Not Detect); Cannabinoid Screen Urine Not Detected (Not Detect); Cocaine Screen Urine POSITIVE (Not Detect); Fentanyl, urine Not Detected (Not Detect); Opiate Screen Urine Not Detected (Not Detect); Phencyclidine Screen Urine Not Detected (Not Detect)
[2021-06-04 03:13] VITALS: BP 98/50; PULSE 94; RESP 16; TEMP 37.1; O2SAT 97
[2021-06-04 03:19] LABS: HCG Quantitative 17768 mIU/mL
[2021-06-04 04:00] VITALS: BP 119/51; PULSE 89; RESP 18; TEMP 36.6; O2SAT 99
[2021-06-04 04:01] LABS: COVID-19 Test Negative (Negative); IDNOW Serial# 9DD0AD1C
--- NOTE | 2021-06-04 04:40 | ED.ABDPAIN ---
HPI - Abdominal Pain General Chief Complaint: Abdominal Pain Stated Complaint: Drug Use/? Time Seen by Provider: 06/04/21 01:33 Source: patient Mode of arrival: ambulatory History of Present Illness HPI narrative: This is a 26-year-old female who presents with concerns regarding possible for 5 months although she cannot recall her LMP and states that she has been chronically using crack cocaine. She has multiple complaints regarding abdominal discomfort as well as nausea and vomiting but denies fever chills and denies any urinary symptoms as well as vaginal bleeding. Patient denies any suicidal ideation but does endorse that she was admitted to in January of this year. Related Data Previous Rx's Medication Instructions Recorded divalproex 500 mg tablet,delayed 500 mg PO BID 30 Days #60 tab 01/25/21 release olanzapine 5 mg tablet 5 mg PO BID 30 Days #60 tab 01/25/21 trazodone 50 mg tablet 50 mg PO BEDTIME PRN 30 Days tab 01/25/21 Allergies Allergy/AdvReac Type Severity Reaction Status Date / Time No Known Allergies Allergy Verified 06/04/21 01:19 [No Known Allergies*] Review of Systems Review of Systems Pertinent positives and negatives as stated in HPI and 10 point review of systems is otherwise negative. Physical Exam Vital Signs: Vital Signs: Last Vital Signs Temp 98.2 F 06/04/21 05:42 Pulse 85 06/04/21 05:42 Resp 17 06/04/21 05:42 BP 95/51 L 06/04/21 05:42 Pulse Ox 98 06/04/21 05:42 Body Mass Index 22.7 VITAL SIGNS: Reviewed. GENERAL: Well developed, well nourished, in no acute distress. HEAD: Normocephalic/atraumatic EYES: PERRLA, EOMI EARS: Ext canals without abnormality NOSE: Nares patent bilateral OROPHARYNX: no oral lesions noted, posterior pharynx clear NECK: Supple, no adenopathy LUNGS: Normal breath sounds. No adventitious sounds or accessory muscle use. SpO2<98> CARDIOVASCULAR: Regular rate and rhythm without noted murmurs ABDOMEN: Soft, non-tender, non-distended with bowel sounds. SKIN: Inspection of the skin reveals no rashes NEUROLOGIC: Alert and oriented x 4. Strength and sensation to light touch were grossly intact x 4. Course Course Course Narrative: 26-year-old female with history and clinical presentation consistent with of unknown duration and no care as mother has continued to use crack cocaine on a regular basis with last use yesterday. Review of all investigations is negative for evidence of infection and noted anemia is consistent with prior on comparison and urinalysis is negative for acute findings. COVID-19 is negative and evaluation with ultrasound shows IUP with EGA 20.3. ROSHAN-10/19/2021. Patient has been eating and drinking without difficulties here in the emergency room and she was informed of all results as well as the estimated date of delivery for the child. She was also instructed to start vitamins and follow-up with an automatic quilling machine operator (she [facility] with [facility]). She is otherwise discharged home in stable condition. MDM - Abdominal Pain Lab Data Result diagrams: 06/04/21 01:30 06/04/21 01:30 Labs: Lab Results 06/04/21 06/04/21 06/04/21 Range/Units 01:30 01:30 01:30 WBC 8.8 (4.8-10.8) X10*3/uL RBC 3.03 L (4.20-5.50) X10*6/uL Hgb 9.8 L (12.0-16.0) g/dl Hct 27.9 L (37-47) % MCV 92.1 (80-98) fL MCH 32.3 (27.0-33.0) pg MCHC 35.1 H (31.0-35.0) g/dl RDW 12.9 (11.0-16.0) % Plt Count 292 (160-400) X10*3/uL MPV 9.4 (9.4-12.3) fL Immature Gran % (Auto) 0.7 H (0.0-0.4) % Neut % (Auto) 64.8 (45-73) % Lymph % (Auto) 25.5 (20-40) % Keith % (Auto) 6.3 (2-11) % Eos % (Auto) 2.1 (0-4) % Baso % (Auto) 0.6 (0-2) % Lymph # (Auto) 2.3 (1.2-4.9) X10*3/uL [place] # (Auto) 0.6 (0.1-1.2) X10*3/uL Eos # (Auto) 0.2 (0.0-0.4) X10*3/uL Baso # (Auto) 0.1 (0.0-0.2) X10*3/uL Abs Immat Gran (auto) 0.06 H (0.00-0.03) X10*3/uL Absolute Neuts (auto) 5.7 (2.0-8.3) X10*3/uL Absolute Nucleated RBC 0.000 (0.0-0.012) X10*3/uL Nucleated RBC % (auto) 0.0 (0.0-0.2) /100WBC Sodium 137 (135-145) mmol/L Potassium 3.4 (3.3-5.1) mmol/L Chloride 107 (96-108) mmol/L Carbon Dioxide 22 (22-29) mmol/L Anion Gap 11 L (12-20) BUN 11 (9-16) mg/dL Creatinine 0.66 (0.5-1.4) mg/dL Estim Creat Clear Calc 114.2 Estimated GFR > 60 Random Glucose 83 (60-115) mg/dL Calcium 8.8 D (8.4-10.2) mg/dL Total Bilirubin 0.2 (0.0-1.0) mg/dL AST 15 (5-31) U/L ALT 10 (0-31) U/L Alkaline Phosphatase 39 (39-117) U/L Total Protein 6.4 L (6.5-8.0) g/dL Albumin 3.4 L (3.5-5.0) g/dL Beta HCG, Quant 01347 mIU/mL Urine Color YELLOW Urine Appearance HAZY Urine pH 6.0 (5.0-8.0) Ur Specific [place] >= 1.030 H (1.005-1.025) Urine Protein TRACE (NEG-TRACE) MG/DL Urine Glucose (UA) NEG (NEG) MG/DL Urine Ketones NEG (NEG) MG/DL Urine Blood NEG (NEG) Urine Nitrite NEG (NEG) Ur Leukocyte Esterase NEG (NEG) Urine Test (NEGATIVE) Urine Opiates Screen (Not Detect) Urine Fentanyl Screen (Not Detect) Ur Barbiturates Screen (Not Detect) Ur Phencyclidine Scrn (Not Detect) Ur Amphetamines Screen (Not Detect) U Benzodiazepines Scrn (Not Detect) Urine Cocaine Screen (Not Detect) U Marijuana (THC) Screen (Not Detect) COVID-19 (RONNIE) (Negative) COVID-19 Clin Com 06/04/21 06/04/21 06/04/21 Range/Units 01:30 01:30 03:42 WBC (4.8-10.8) X10*3/uL RBC (4.20-5.50) X10*6/uL Hgb (12.0-16.0) g/dl Hct (37-47) % MCV (80-98) fL MCH (27.0-33.0) pg MCHC (31.0-35.0) g/dl RDW (11.0-16.0) % Plt Count (160-400) X10*3/uL MPV (9.4-12.3) fL Immature Gran % (Auto) (0.0-0.4) % Neut % (Auto) (45-73) % Lymph % (Auto) (20-40) % [place] % (Auto) (2-11) % Eos % (Auto) (0-4) % Baso % (Auto) (0-2) % Lymph # (Auto) (1.2-4.9) X10*3/uL [place] # (Auto) (0.1-1.2) X10*3/uL Eos # (Auto) (0.0-0.4) X10*3/uL Baso # (Auto) (0.0-0.2) X10*3/uL Abs Immat Gran (auto) (0.00-0.03) X10*3/uL Absolute Neuts (auto) (2.0-8.3) X10*3/uL Absolute Nucleated RBC (0.0-0.012) X10*3/uL Nucleated RBC % (auto) (0.0-0.2) /100WBC Sodium (135-145) mmol/L Potassium (3.3-5.1) mmol/L Chloride (96-108) mmol/L Carbon Dioxide (22-29) mmol/L Anion Gap (12-20) BUN (9-16) mg/dL Creatinine (0.5-1.4) mg/dL Estim Creat Clear Calc Estimated GFR Random Glucose (60-115) mg/dL Calcium (8.4-10.2) mg/dL Total Bilirubin (0.0-1.0) mg/dL AST (5-31) U/L ALT (0-31) U/L Alkaline Phosphatase (39-117) U/L Total Protein (6.5-8.0) g/dL Albumin (3.5-5.0) g/dL Beta HCG, Quant mIU/mL Urine Color Urine Appearance Urine pH (5.0-8.0) Ur Specific [place] (1.005-1.025) Urine Protein (NEG-TRACE) MG/DL Urine Glucose (UA) (NEG) MG/DL Urine Ketones (NEG) MG/DL Urine Blood (NEG) Urine Nitrite (NEG) Ur Leukocyte Esterase (NEG) Urine Test POSITIVE H (NEGATIVE) Urine Opiates Screen Not Detected (Not Detect) Urine Fentanyl Screen Not Detected (Not Detect) Ur Barbiturates Screen Not Detected (Not Detect) Ur Phencyclidine Scrn Not Detected (Not Detect) Ur Amphetamines Screen Not Detected (Not Detect) U Benzodiazepines Scrn Not Detected (Not Detect) Urine Cocaine Screen POSITIVE H (Not Detect) U Marijuana (THC) Screen Not Detected (Not Detect) COVID-19 (RONNIE) Negative (Negative) COVID-19 Clin Com See Note Discharge Plan Discharge Clinical Impression: Nausea, Patient Disposition: Home, Self-Care Instructions: Nausea and Vomiting in (ED), Vitamins (By mouth) Additional Instructions: 1. DEJE de consumir crack. 2. Empiece a katy vitaminas prenatales a diario. 3. Se le hayes proporcionado rafi lista de m?dicos que pueden atenderla sheila odell embarazo. 4. Regrese a la lori de emergencias por un empeoramiento nacho de los s?ntomas. Prescriptions: No Action trazodone 50 mg Tablet 50 mg PO BEDTIME PRN (Reason: Insomnia) 30 Days RF: 0 olanzapine 5 mg Tablet 5 mg PO BID 30 Days Qty: 60 RF: 0 divalproex 500 mg Tablet,Delayed Release (Dr/Ec) 500 mg PO BID 30 Days Qty: 60 RF: 0 Referrals: Jin Knight MD [Physician] - 2 days (26-year-old female, crack cocaine user, no care, at 20.3 weeks and looking for initiating care as well as being instructed to start vitamins and stop crack cocaine.) Print Language: [place] [facility] Past Medical History Source: nursing notes reviewed Medical History Depression Social History Social History Household Members: Spouse Housing: Homeless Do you presently have visiting nurse or other home services: No Advance Directives: No Patient : No (UNKNOWN LAST MENTRAL PERIOD, ?) service: No Sexual orientation: Straight/Heterosexual
[2021-06-04 05:42] VITALS: BP 95/51; PULSE 85; RESP 17; TEMP 36.8; O2SAT 98
[2021-06-04 08:00] VITALS: BP 99/56; PULSE 78; RESP 20; O2SAT 96
== END 2021-06-04 08:38 | disposition home or self-care (01) ==
PROVIDERS: Emergency Provider Student in an Organized Health Care Education/Training Program
DX: O26.91 Pregnancy related conditions, unspecified, first trimester (principal); O99.321 Drug use complicating pregnancy, first trimester; Z3A.01 Less than 8 weeks gestation of pregnancy; Z20.822 Contact with and (suspected) exposure to COVID-19; Z79.899 Other long term (current) drug therapy
CPT/HCPCS: 36415; 76815; 80053; 80307; 81003; 81025; 84702; 85025; 87635; 99284

== ENCOUNTER 2023-12-24 11:37 | Emergency (ER) | payer OTHER, SELFPAY ==
[2023-12-24 12:11] VITALS: BP 134/67; PULSE 71; RESP 16; TEMP 35.7; O2SAT 100; BMI 29.1
--- NOTE | 2023-12-24 12:15 | ED.MEDCLEAR ---
HPI - Medical Clearance General Chief complaint: Medical Clearance Stated complaint: medical clearance Time Seen by Provider: 12/24/23 14:14 Source: patient Mode of arrival: ambulatory Limitations: no limitations History of Present Illness HPI Narrative: Patient comes to the emergency room requesting to be tested for drugs of abuse and COVID/influenza. Patient needs medical clearance to return to her detox program. Patient has no medical complaints otherwise. Related Information Previous Rx's ?Medication ?Instructions ?Recorded divalproex 500 mg tablet,delayed 500 mg PO BID 30 days #60 tabs 01/25/21 release olanzapine 5 mg tablet 5 mg PO BID 30 days #60 tabs 01/25/21 trazodone 50 mg tablet 50 mg PO BEDTIME PRN Insomnia 30 01/25/21 days Allergies Allergy/AdvReac Type Severity Reaction Status Date / Time No Known Allergies Allergy Verified 12/24/23 12:13 [No Known Allergies*] Review of Systems Review of Systems: Constitutional : No Weight loss, No Fever, No Chills, No Night Sweats, No Fatigue, No Malaise ENT/Mouth : No Hearing loss, No Ear Pain, No Nasal Congestion, No Sinus Pain, No Hoarseness, No sore throat, No Rhinorrhea, No Swallowing Difficulty Eyes: No Eye Pain, No Swelling, No Redness, No Foreign Body, No Discharge, No Vision Changes Cardiovascular : No Chest Pain, No SOB, No Dyspnea on Exertion, No Orthopnea, No Edema, No Palpitations Respiratory : No Cough, No Sputum, No Wheezing, No Smoke Exposure, No Dyspnea Gastrointestinal : No Nausea, No Vomiting, No Diarrhea, No Constipation, No abdominal Pain, No Hematochezia, No Melena Genitourinary : no irregular bleeding, No Dysuria, No Urinary Frequency, No Hematuria, No Urinary Incontinence, No Urgency, No Flank Pain, No Urinary Flow Changes, No Hesitancy Musculoskeletal : No joint pain, No Myalgias, No Joint Swelling Skin : No Skin Lesions, No rash Neuro : No Weakness, No Numbness, No Paresthesias, No Loss of Consciousness, No Dizziness, No Headache Psych : No Anxiety/Panic, No Depression, No SI/HI/AH/VH, admits to polysubstance abuse Heme/Lymph: No Bruising, No Bleeding,No Lymphadenopathy Endocrine : No Polyuria, No Polydipsia, No Temperature Intolerance [facility] Past Medical History Medical History (Updated 12/24/23 @ 14:22 by Alejandra Mckinney MD) Bipolar 1 disorder, manic, moderate Cocaine use disorder, severe, dependence Depression Social History Social History Household Members: Spouse Housing: Homeless Do you presently have visiting nurse or other home services: No service: No Sexual orientation: Straight/Heterosexual Physical Exam Vital Signs: Vital Signs: Last Vital Signs Temp 96.3 F L 12/24/23 12:11 Pulse 71 12/24/23 12:11 Resp 16 12/24/23 12:11 BP 134/67 12/24/23 12:11 Pulse Ox 100 12/24/23 12:11 O2 Del Method Room Air 12/24/23 12:11 BMI result Body Mass Index 29.1 Const: Other: Appearance: Alert. Oriented X3. No acute distress. Eyes: Pupils equal, round and reactive to light. ENT: Pharynx normal. Neck: Normal inspection. Neck supple. No lymph nodes noted. No crepitus CVS: Normal heart rate and rhythm. Pulses normal. Normal S1 and S2 Respiratory: No respiratory distress. Breath sounds normal. No Wheezing. No rales Abdomen: Soft and nontender. No rigidity. No distention. Skin: Skin warm and dry. Normal skin color. Normal skin turgor. Extremities: No lower extremity edema. No Lacerations. No Rash Neuro: Oriented X 3. No motor deficit. No sensory deficit. Moving all extremities. No slurred speech. CN 2 through 12 grossly intact Psych: calm, cooperative, normal affect Course Course Course Narrative: This is a rapid medical exam. Deferred additional HPI, ROS, PE to primary provider. Needs covid test to return to detox program. No complaints. Covid screen ordered. VSS Medical Decision Making Medical Decision Making [facility] Narrative: -my interpretation of labs: Urine toxicology positive for fentanyl and cocaine, serology results negative for COVID and influenza and RSV. Lab Data [facility] Lab Attestation statement: I reviewed the patient's lab results. Labs: Lab Results 12/24/23 12/24/23 Range/Units 12:36 12:43 Urine Color Yellow Urine Appearance Clear Urine pH 5.5 (5.0-9.0) Ur Specific [place] 1.025 (1.005-1.025) Urine Protein Negative (Neg-Trace) mg/dL Urine Glucose (UA) Negative (Negative) mg/dL Urine Ketones Negative (Negative) mg/dL Urine Blood Moderate (2+) H (Negative) Urine Nitrite Negative (Negative) Ur Leukocyte Esterase Negative (Negative) Urine RBC 3-5 H (0-2) /HPF Urine WBC 0-5 (0-5) /HPF Ur Squamous Epith Cells 6-10 (0-2) /HPF Urine Bacteria None Seen (None Seen) Hyaline Casts 0-2 (0-2) /LPF Urine Opiates Screen Not Detected (Not Detect) Ur Buprenorphine Scrn Not Detected (Not Detect) ng/mL Ur Oxycodone Screen Not Detected (Not Detect) ng/mL Urine Methadone Screen Not Detected (Not Detect) ng/mL Urine Fentanyl Screen POSITIVE H (Not Detect) Ur Barbiturates Screen Not Detected (Not Detect) Ur Phencyclidine Scrn Not Detected (Not Detect) Ur Amphetamines Screen Not Detected (Not Detect) U Benzodiazepines Scrn Not Detected (Not Detect) Urine Cocaine Screen POSITIVE H (Not Detect) U Marijuana (THC) Screen Not Detected (Not Detect) Influenza Type A (PCR) NEGATIVE (Negative) Influenza Type B (PCR) NEGATIVE (Negative) RSV RNA Qual (PCR) NEGATIVE (Negative) SARS-CoV-2 RNA (RT-PCR) NEGATIVE (Negative) Discharge Plan Discharge Clinical Impression: Polysubstance abuse Patient Disposition: Home, Self-Care Instructions: Polysubstance Abuse (ED) Prescriptions: No Action trazodone 50 mg Tablet 50 mg PO BEDTIME PRN (Reason: Insomnia) 30 Days 0RF olanzapine 5 mg Tablet 5 mg PO BID 30 Days Qty: 60 0RF divalproex 500 mg Tablet,Delayed Release (Dr/Ec) 500 mg PO BID 30 Days Qty: 60 0RF Print Language: Burkinan
[2023-12-24 12:58] LABS: Appearance Urine Clear; Color Urine Yellow; Glucose Urine UA Negative (Negative); Leukocyte Esterase Urine Negative (Negative); Nitrite Urine Negative (Negative); PH 5.5 (5.0-9.0); Specific Gravity - Urine 1.025 (1.005-1.025); UMIC TRIGGER UACC YES; Urine Blood Moderate (2+) (Negative); Urine Ketones Negative (Negative); Urine Protein Negative (Neg-Trace)
[2023-12-24 13:05] LABS: Amphetamine Screen Urine Not Detected (Not Detect); Barbiturates, Urine Not Detected (Not Detect); Benzodiazepines Screen Urine Not Detected (Not Detect); Buprenorphine Scr Not Detected (Not Detect); Cannabinoid Screen Urine Not Detected (Not Detect); Cocaine Screen Urine POSITIVE (Not Detect); Fentanyl, urine POSITIVE (Not Detect); Methadone Screen, Urine Not Detected (Not Detect); Opiate Screen Urine Not Detected (Not Detect); Oxycodone Screen Urine Not Detected (Not Detect); Phencyclidine Screen Urine Not Detected (Not Detect)
[2023-12-24 13:10] LABS: Bacteria Urine None Seen (None Seen); Hyaline Casts Urine 0-2 /LPF (0-2); WBC Urine 0-5 /HPF (0-5)
[2023-12-24 13:48] LABS: Influenza A PCR NEGATIVE (Negative); Influenza B PCR NEGATIVE (Negative); Resp Syncy Virus RNA Qual PCR NEGATIVE (Negative); SARS COV2 PCR INHOUSE NEGATIVE (Negative)
[2023-12-24 14:30] VITALS: BP 134/67; PULSE 71; RESP 16; TEMP 35.7; O2SAT 100
== END 2023-12-24 14:32 | disposition home or self-care (01) ==
PROVIDERS: Emergency Provider Emergency Medicine; PCP Nurse Practitioner Primary Care
DX: Z02.89 Encounter for other administrative examinations (principal); F19.10 Other psychoactive substance abuse, uncomplicated
CPT/HCPCS: 0241U; 80307; 81001; 99282; 99283

== ENCOUNTER 2024-02-10 11:46 | Emergency (ER) | payer OTHER, SELFPAY ==
[2024-02-10 12:19] VITALS: BP 110/71; PULSE 78; RESP 16; TEMP 36.5; O2SAT 97; BMI 29.1
--- NOTE | 2024-02-10 12:28 | ED_ITS ---
HPI - General Adult General Chief complaint: Skin/Abscess/Foreign Body Stated complaint: Abscess on buttocks Time Seen by Provider: 02/10/24 12:24 Source: patient Mode of arrival: ambulatory Limitations: no limitations History of Present Illness ED Provider: Darren Siddiqui PA-C HPI narrative: 29 yold female with pmh of substance abuse presents to the ED for right painful buttock mass presents for one week. patient its it was red and large and she sqeeuzed the pus out the mass. patient denies any drug injection into site. Patient states no rectal pain Related Data Previous Rx's ?Medication ?Instructions ?Recorded divalproex 500 mg tablet,delayed 500 mg PO BID 30 days #60 tabs 01/25/21 release olanzapine 5 mg tablet 5 mg PO BID 30 days #60 tabs 01/25/21 trazodone 50 mg tablet 50 mg PO BEDTIME PRN Insomnia 30 01/25/21 days cephalexin 500 mg capsule 500 mg PO QID 7 days #28 caps 02/10/24 doxycycline hyclate 100 mg tablet 100 mg PO BID 7 days #14 tabs 02/10/24 Allergies Allergy/AdvReac Type Severity Reaction Status Date / Time No Known Allergies Allergy Verified 02/10/24 12:19 [No Known Allergies*] Review of Systems 2 Review of Systems: right buttock abscess Yes all other systems are reviewed and are negative [facility] Past Medical History Medical History (Updated 02/11/24 @ 00:00 by Savannah Bennett) Bipolar 1 disorder, manic, moderate Cocaine use disorder, severe, dependence Depression Social History Social History Household Members: Spouse Housing: Homeless Do you presently have visiting nurse or other home services: No Advance Directives: No Advance Directives Information Provided: No Do you have a plan to hurt others: No Plan service: No Sexual orientation: Straight/Heterosexual Physical Exam ED Vital Signs: Vital Signs - 24 hr 02/10/24 12:19 Temperature 97.7 F Pulse Rate 78 Respiratory Rate 16 Blood Pressure 110/71 Pulse Oximetry 97 Oxygen Delivery Method Room Air BMI result Body Mass Index 29.1 Const General: cooperative, healthy appearing, comfortable, no acute distress, well developed, alert, awake and Physically active Orientation/consciousness: oriented to person, oriented to place, oriented to time and patient oriented x3 HENMT Head: Yes normal to inspection, Yes No palpable skull fracture present, Yes normocephalic and Yes atraumatic Eyes General: appearance normal, both eyes and all related structures Neck Neck: Yes normal visual inspection, Yes full ROM, Yes no lymphadenopathy, Yes no meningeal signs, Yes trachea midline, Yes supple, No anterior neck swelling and No tender Chest Chest palpation & inspection: normal inspection of the chest and normal palpation of entire chest wall Resp Effort & Inspection: normal respiratory effort and able to speak in complete sentences Auscultation: clear to auscultation bilaterally Cardio Jugular venous distension: no JVD Heart sounds: S1 normal heart sound present and S2 normal heart sound present GI Inspection: Yes normal to inspection and No abdominal wall ecchymosis Palpation (GI): Soft to palpation, not firm, nontender, no guarding and not rigid Other: Rectal exam negative for sigs of per-rectal/perianal abscess. General: Yes no CVA tenderness Back/Spine/Pelvis Back: no CVA tenderness and No back tenderness Back/spine/pelvis image: 2 1. area of redness, warmth, and slight tenderness. negative for fluctulnace, pus drainage, or black eschlar/gangrened. rest of buttock and extremity normal. Skin General skin exam: no rashes or lesions noted, elasticity normal and turgor normal Neuro General: oriented to person, oriented to place, oriented to time, patient oriented x3, gait normal, tone normal, moves all extremities, Normal light touch and pain sensation, no meningeal signs, no focal motor deficits and CN's II-XI intact bilaterally Extrem General: Yes normal to inspection, Yes full ROM and Yes capillary refill normal Psych Appearance: grossly normal, well kempt and not disheveled Medical Decision Making Medical Decision Making MDM Narrative: 29-year-old female history of polysubstance abuse presents to ED for right buttock area of redness mass for the past 5 days. Patient states mass was larger and red and she squeezed all the pus out of mass. Patient denies any rectal pain, patient denies any fever or chills. Patient denies any IV drug injection to the site. Exam shows early abscess cellulitis.patient explained worrisome signs and informed to return to ED if she has them. not suspecting MRSA, or nectroziing gascitits. no incision and drainge needed. Differential Diagnosis Differential Diagnoses: The differential diagnosis associated with the presentation includes Admission/Observation Consideration of admission/observation: Escalation of care including admission/observation considered Independent Historian Clinical information obtained from an independent historian. History obtained from or confirmed by: Other (patient) External Record Review External record reviewed: Other (prior visits) Prescription Management I considered prescription management with: Antibiotic Discharge Plan Discharge Clinical Impression: Cellulitis, Abscess of skin or subcutaneous tissue Patient Disposition: Home, Self-Care Instructions: Cellulitis (ED), Abscess (ED) Additional Instructions: Presently no need for incision and drainage. Recommend warm compress 4 times a day when area for 15 minutes. You will be discharged antibiotics. Recommend follow-up with primary care provider. Return to the ED immediately for any increased buttock pain, redness, swelling, profuse pus discharge, foul odor, fever, chills, or any other concerning symptoms. Prescriptions: New doxycycline hyclate 100 mg tablet 100 mg PO BID 7 Days Qty: 14 0RF cephalexin 500 mg capsule 500 mg PO QID 7 Days Qty: 28 0RF No Action trazodone 50 mg Tablet 50 mg PO BEDTIME PRN (Reason: Insomnia) 30 Days 0RF olanzapine 5 mg Tablet 5 mg PO BID 30 Days Qty: 60 0RF divalproex 500 mg Tablet,Delayed Release (Dr/Ec) 500 mg PO BID 30 Days Qty: 60 0RF Discharge Date/Time: 02/10/24 12:38 Print Language: Bulgarian
== END 2024-02-10 12:38 | disposition home or self-care (01) ==
PROVIDERS: Emergency Provider Emergency Medicine
DX: L02.31 Cutaneous abscess of buttock (principal); L03.317 Cellulitis of buttock
CPT/HCPCS: 99281; 99283

== ENCOUNTER 2024-03-03 08:57 | Emergency (ER) | payer OTHER, SELFPAY ==
[2024-03-03 09:25] VITALS: BP 94/66; PULSE 94; RESP 16; TEMP 36.2; O2SAT 99; BMI 22.6
== END 2024-03-03 12:32 | disposition left against medical advice (07) ==
LOC: HO.ED 12:20
PROVIDERS: Emergency Provider Emergency Medicine
DX: Z04.9 Encounter for examination and observation for unspecified reason (principal)
CPT/HCPCS: 99281

== ENCOUNTER 2024-04-24 09:55 | Emergency (ER) | payer OTHER, SELFPAY ==
--- NOTE | ~2024-04-24 | XR_ITS ---
EXAMINATION: XR ANKLE, LEFT CLINICAL INFORMATION: Ankle pain. COMPARISON: None available. TECHNIQUE: AP, lateral, and mortise views of the left ankle. FINDINGS: No acute fracture or dislocation. Asymmetric soft tissue swelling adjacent to the lateral malleolus. No unexpected radiopaque foreign bodies. XR/XR ankle LT min 3V IMPRESSION: 1. No acute fracture or dislocation. 2. Asymmetric soft tissue swelling adjacent to the lateral malleolus. Electronically signed by: Christine Sheth MD 04/24/2024 11:24 AM EDT
[2024-04-24 10:06] VITALS: BP 130/73; PULSE 97; RESP 18; TEMP 36.2; O2SAT 98; BMI 25.2
--- NOTE | 2024-04-24 10:18 | ED_ITS ---
HPI - Medical Clearance General Chief complaint: Medical Clearance Stated complaint: drug test Time Seen by Provider: 04/24/24 10:06 Source: patient Mode of arrival: ambulatory Limitations: no limitations History of Present Illness ED Provider: Rajinder DESAI HPI Narrative: This is a 29-year-old female history of cocaine use disorder, bipolar, presenting for drug screening, she reports she used crack yesterday, the [facility] house became aware of this, they wanted her to get drug tested, she reports she did report to them she used crack. She last use yesterday. She also has a scrape/something on her ear she would like checked out. She has had these sores for awhile. Patient denies blunt trauma. She denies SI and HI. No hallucinations. No other medical complaints. Related Information Previous Rx's ?Medication ?Instructions ?Recorded divalproex 500 mg tablet,delayed 500 mg PO BID 30 days #60 tabs 01/25/21 release olanzapine 5 mg tablet 5 mg PO BID 30 days #60 tabs 01/25/21 trazodone 50 mg tablet 50 mg PO BEDTIME PRN Insomnia 30 01/25/21 days cephalexin 500 mg capsule 500 mg PO QID 7 days #28 caps 02/10/24 doxycycline hyclate 100 mg tablet 100 mg PO BID 7 days #14 tabs 02/10/24 bacitracin 500 unit/gram topical 1 appl topical Q8H #14 grams 04/24/24 ointment Allergies Allergy/AdvReac Type Severity Reaction Status Date / Time acetaminophen [From Percocet] Allergy Difficulty Verified 04/24/24 10:09 Breathing oxycodone [From Percocet] Allergy Difficulty Verified 04/24/24 10:09 Breathing Review of Systems Review of Systems: Yes all other systems are reviewed and are negative PMFSH Past Medical History Attestation statement: The following information was validated with the patient. Source: old records reviewed and nursing notes reviewed Medical History Bipolar 1 disorder, manic, moderate Cocaine use disorder, severe, dependence Depression Social History Social History Household Members: Spouse Housing: Homeless Do you presently have visiting nurse or other home services: No service: No Sexual orientation: Straight/Heterosexual Physical Exam Vital Signs: Vital Signs: Last Vital Signs Temp 97.2 F 04/24/24 10:06 Pulse 97 04/24/24 10:06 Resp 18 04/24/24 10:06 BP 130/73 04/24/24 10:06 Pulse Ox 98 04/24/24 10:06 O2 Del Method Room Air 04/24/24 10:06 BMI result Body Mass Index 25.2 vss Appearance: Alert.? Oriented X3.? No acute cardiopulmonary distress distress.? Head: Normocephalic, atraumatic, no step-offs or deformities ENT: Pharynx normal.??External ears normal, TMs normal bilaterally and EAC's normal. No pain with manipulation of external ears bilaterally. No mastoid tenderness. + abrasion to pinna of L ear. Neck: Normal inspection.? Neck supple.? CVS: Pulses normal.? Respiratory: No respiratory distress.? Skin: ? Normal skin color. Extremities: 5/5 strength to bilateral upper and lower extremities Back: No midline tenderness, no C-spine tenderness, full range of motion, No CVA tenderness bilaterally Neuro: Oriented X 3.? No motor deficit.? No sensory deficit. Course Reevaluation(s) Reevaluation #1: Will discharge patient with bacitracin for abrasion to left ear pinna. AVALOS pending. Educated patient on diagnosis and treatment plan, answered all question, patient verbalizes understanding. At this time patient will be discharged home, advised to return with new or worsening symptoms. Educated on worrisome signs and symptoms and when to return. At this time I feel comfortable discharge home. Time: 10:21 Reevaluation #2: When patient was getting discharge she reported some left ankle pain after rolling her ankle, she is requesting an x-ray. X-ray will be ordered I do not suspect fracture dislocation likely strain or sprain versus contusion. No signs of neurovascular compromise she is ambulating without difficulty. Time: 10:34 Medical Decision Making Medical Decision Making MDM Narrative: 29-year-old female presents requesting drug testing. Also has an abrasion on her left ear for unknown amount of time. On exam there is an abrasion to the pinna of the left ear. History and physical exam concerning for abrasion to left ear. Unlikely otitis media, mastoiditis, otitis externa. Will rule out polysubstance abuse. Plan drug testing Differential Diagnosis Differential Diagnoses: The differential diagnosis associated with the presentation includes History and physical exam concerning for abrasion to left ear. Unlikely otitis media, mastoiditis, otitis externa. Will rule out polysubstance abuse. Admission/Observation Consideration of admission/observation: Escalation of care including admission/observation considered No indication Lab Data MDM Lab Attestation statement: I reviewed the patient's lab results. External Record Review External record reviewed: Inpatient record, Office record, Outpatient record, P rior outpatient labs, Prior outpatient radiology and Primary care record Social Determinants Patient?s care significantly limited by Social Determinants of Health including: Alcoholism and drug addiction in family Discharge Plan Discharge Clinical Impression: Encounter for drug screening, Abrasion of ear Patient Disposition: Home, Self-Care Additional Instructions: Take your medications as prescribed. If you were prescribed antibiotics today, it is important that you take your medication to their entirety, do not skip any doses, do not finish them early. Follow-up with your primary care provider this week. Return to the emergency department with new or worsening symptoms. Such as fevers, chills, chest pain, shortness of breath, nausea, vomiting, dizziness, headache, vision changes, lethargy In case of emergency call 911 Prescriptions: New bacitracin 500 unit/gram ointment 1 appl topical Q8H Qty: 14 0RF No Action trazodone 50 mg Tablet 50 mg PO BEDTIME PRN (Reason: Insomnia) 30 Days 0RF olanzapine 5 mg Tablet 5 mg PO BID 30 Days Qty: 60 0RF divalproex 500 mg Tablet,Delayed Release (Dr/Ec) 500 mg PO BID 30 Days Qty: 60 0RF doxycycline hyclate 100 mg tablet 100 mg PO BID 7 Days Qty: 14 0RF cephalexin 500 mg capsule 500 mg PO QID 7 Days Qty: 28 0RF Referrals: Physician,None [Primary Care Provider] - 2 days Interventions: ED Discharge Assessment Last Done: 04/24/24 10:32 Print Language: Rwandan
[2024-04-24 10:32] VITALS: BP 130/73; PULSE 97; RESP 18; TEMP 36.2; O2SAT 98
[2024-04-24 11:03] LABS: Amphetamine Screen Urine Not Detected (Not Detect); Barbiturates, Urine Not Detected (Not Detect); Benzodiazepines Screen Urine Not Detected (Not Detect); Buprenorphine Scr Not Detected (Not Detect); Cannabinoid Screen Urine Not Detected (Not Detect); Cocaine Screen Urine POSITIVE (Not Detect); Fentanyl, urine POSITIVE (Not Detect); Methadone Screen, Urine Not Detected (Not Detect); Opiate Screen Urine Not Detected (Not Detect); Oxycodone Screen Urine Not Detected (Not Detect); Phencyclidine Screen Urine Not Detected (Not Detect)
== END 2024-04-24 10:57 | disposition home or self-care (01) ==
PROVIDERS: Physician Assistant; Emergency Provider Emergency Medicine
DX: S00.412A Abrasion of left ear, initial encounter (principal); X58.XXXA Exposure to other specified factors, initial encounter; F14.20 Cocaine dependence, uncomplicated; F31.12 Bipolar disorder, current episode manic without psychotic features, moderate; Y93.9 Activity, unspecified; Y92.9 Unspecified place or not applicable; Y99.9 Unspecified external cause status; Z79.899 Other long term (current) drug therapy
CPT/HCPCS: 73610; 80307; 99282; 99283